=== PATIENT | female | born 1990 | race Caucasian/White ===

== ENCOUNTER 2016-10-25 14:48 | Emergency (ER) | payer MEDICAID ==
[2016-10-25 15:47] LABS: % BASOPHILS 0.5 % (0.0-2.0); % EOSINOPHILS 1.2 % (0.0-5.0); % LYMPHOCYTES 11.2 % (20.0-50.0); % MONOCYTES 5.6 % (2.0-10.0); % NEUTROPHILS 81.5 % (40.0-80.0); HEMOGLOBIN 11.9 gm/dL (11.7-15.5); MEAN CELL VOLUME 83.6 fl (81-100); MEAN CORPUSCULAR HEMOGLOBIN 27.7 pg (27.0-31.0); MEAN CORPUSCULAR HGB CONC 33.2 pg (28.0-36.0); MEAN PLATELET VOLUME 8.1 fl; NEUTROPHILE ABSOLUTE 9.5 Th/cmm (1.8-8.0); PLATELET COUNT 299 Th/cmm (150-400); RED CELL DISTRIBUTION WIDTH 13.7 % (11.5-20.0); WHITE BLOOD COUNT 11.7 Th/cmm (4.8-10.8)
--- NOTE | 2016-10-25 15:58 | ED Physician Chart ---
Chief Complaint/HPI - Patient Information Date Seen:: 10/25/16 Time Seen:: 15:53 Chief Complaint:: RIGHT LOWER QUADRANT PAIN History of Present Illness:: THIS IS A 26 YO FEMALE WITH THE SUDDEN ONSET OF RIGHT LOWER QUADRANT PAIN A WEEK AGO THAT WENT AWAY. SHE IS HERE TODAYS BECAUSE THE PAIN CAME BACK. SHE DENIES FEVER,VOMITING AND DIARRHEA. SHE DENIES AND PAINFUL URINATION. SHE STATES THAT SHE HAS BEEN BLEEDING FOR A MONTH AND HAS AN IUD. Allergies:: Allergies Allergy/AdvReac Type Severity Reaction Status Date / Time No Known Allergies Allergy Verified 10/25/16 15:46 Vitals:: Vital Signs - 8 hr 10/25/16 15:46 Temp 98.1 F HR 86 RR 16 BP 138/97 O2 Sat % 99 Historian:: Patient Review:: Nurse's Note Reviewed <Jamie Conti - Last Filed: 10/25/16 18:04> - Patient Information Allergies:: Allergies Allergy/AdvReac Type Severity Reaction Status Date / Time No Known Allergies Allergy Verified 10/25/16 15:46 Vitals:: Vital Signs - 8 hr 10/25/16 10/25/16 10/25/16 15:46 17:04 19:26 Temp 98.1 F 98.2 F 98.0 F HR 86 84 69 RR 16 16 18 BP 138/97 137/94 111/74 O2 Sat % 99 99 96 10/25/16 21:06 Temp 98.4 F HR 61 RR 16 BP 115/71 O2 Sat % 97 <Jonathan Llanes - Last Filed: 10/25/16 21:38> Review of Systems - Review of Systems General/Constitutional: No fever, No chills, No weight loss, No weakness, No diaphoresis, No edema, No loss of appetite Skin: No skin lesions, No rash, No bruising Head: No headache, No light-headedness Eyes: No loss of vision, No pain, No diplopia ENT: No earache, No nasal drainage, No sore throat, No tinnitus Neck: No neck pain, No swelling, No thyromegaly, No stiffness, No mass noted Cardio Vascular: No chest pain, No palpitations, No PND, No orthopnea, No edema Pulmonary: No SOB, No cough, No sputum, No wheezing GI: No nausea, No vomiting, No diarrhea, Pain, No melena, No hematochezia, No constipation, No hematemesis G/U: No dysuria, No frequency, No hematuria Musculoskeletal: No bone or joint pain, No back pain, No muscle pain Endocrine: No polyuria, No polydipsia Psychiatric: No prior psych history, No depression, No anxiety, No suicidal ideation Hematopoietic: No bruising, No lymphadenopathy Allergic/Immuno: No urticaria, No angioedema Neurological: No syncope, No focal symptoms, No weakness, No paresthesia, No headache, No seizure, No dizziness, No confusion, No vertigo <Jamie Conti - Last Filed: 10/25/16 18:04> Past Medical History - Past Medical History Obtainable: Yes Past Medical History: Thyroid disorder Family History: None Social History: Non Smoker, No Alcohol, No Drug Use Surgical History: <Jamie Conti Filed: 10/25/16 18:04> Family Medical History - Family Member Mother History Unknown: Yes <Jamie Conti Last Filed: 10/25/16 18:04> Physical Exam - Physical Examination General/Constitutional: Awake, Well-developed, well-nourished, Alert, No distress, GCS 15, Non-toxic appearing, Ambulatory Head: Atraumatic Eyes: Lids, conjuctiva normal, PERRL, EOMI Skin: Nl inspection, No rash, No skin lesions, No ecchymosis, Well hydrated, No lymphadenopathy ENMT: External ears, nose nl, Nasal exam nl, Lips, teeth, gums nl Neck: Nontender, Full ROM w/o pain, No JVD, No nuchal rigidity, No bruit, No mass, No stridor Respiratory: Nl effort/Exclusion, Clear to Auscultation, No Wheeze/Rhonchi/Rales Cardio Vascular: RRR, No murmur, gallop, rubs, NL S1 S2 GI: No organomegaly, No hernia, Normal BS's, Nondistended, No mass/bruits, No McBurney tenderness Other GI comments:: RIGHT LOWER QUADRANT TENDERNESS : No CVA tenderness Extremities: No tenderness or effusion, Full ROM, normal strength in all extremities, No edema, Normal digits & nails Neuro/Psych: Alert/oriented, DTR's symmetric, Normal sensory exam, Normal motor strength, Judgement/insight normal, Mood normal, Normal gait, No focal deficits Misc: normal gait, Normal back, No paraspinal tenderness <Jamie Conti - Last Filed: 10/25/16 18:04> Labs/Radiology/EKG Results - Lab Results Results: Laboratory Tests 10/25/16 15:15 WBC 11.7 H RBC 4.30 Hgb 11.9 Hct 36.0 MCV 83.6 MCH 27.7 MCHC Differential 33.2 RDW 13.7 Plt Count 299 MPV 8.1 Neutrophils % 81.5 H Lymphocytes % 11.2 L Monocytes % 5.6 Eosinophils % 1.2 Basophils % 0.5 <GallitoJamie - Last Filed: 10/25/16 18:04> - Lab Results Results: Laboratory Tests 10/25/16 10/25/16 10/25/16 15:15 15:15 15:15 WBC 11.7 H RBC 4.30 Hgb 11.9 Hct 36.0 MCV 83.6 MCH 27.7 MCHC Differential 33.2 RDW 13.7 Plt Count 299 MPV 8.1 Neutrophils % 81.5 H Lymphocytes % 11.2 L Monocytes % 5.6 Eosinophils % 1.2 Basophils % 0.5 PT 10.1 INR 0.97 PTT (Actin FS) 25.6 L Sodium 135 L Potassium 3.7 Chloride 106 Carbon Dioxide 21.4 Anion Gap 11.3 BUN 9 Creatinine 0.7 Est GFR ( Amer) > 60.0 Est GFR (Non-Af Amer) > 60.0 BUN/Creatinine Ratio 12.9 Glucose 99 Calcium 9.3 Total Bilirubin 0.4 AST 17 ALT 15 Alkaline Phosphatase 85 Troponin I Total Protein 7.1 Albumin 4.2 Globulin 2.9 Albumin/Globulin Ratio 1.5 TSH Beta HCG, Quant Serum , Qual Urine Source Urine Color Urine Clarity Urine pH Ur Specific [place] Urine Protein Urine Glucose (UA) Urine Ketones Urine Blood Urine Nitrate Urine Bilirubin Urine Urobilinogen Ur Leukocyte Esterase Urine RBC Urine WBC Ur Epithelial Cells Urine Bacteria Urine Test Urine Opiates Screen Urine Methadone Screen Ur Barbiturates Screen Ur Tricyclics Screen Ur Phencyclidine Scrn Amphetamines Screen U Methamphetamines Scrn U Benzodiazepines Scrn U Cocaine Metab Screen U Cannabinoids Screen RPR 10/25/16 10/25/16 10/25/16 15:15 15:15 15:15 WBC RBC Hgb Hct MCV MCH MCHC Differential RDW Plt Count MPV Neutrophils % Lymphocytes % Monocytes % Eosinophils % Basophils % PT INR PTT (Actin FS) Sodium Potassium Chloride Carbon Dioxide Anion Gap BUN Creatinine Est GFR ( Amer) Est GFR (Non-Af Amer) BUN/Creatinine Ratio Glucose Calcium Total Bilirubin AST ALT Alkaline Phosphatase Troponin I < 0.01 L Total Protein Albumin Globulin Albumin/Globulin Ratio TSH 1.49 Beta HCG, Quant Serum , Qual Urine Source Urine Color Urine Clarity Urine pH Ur Specific [place] Urine Protein Urine Glucose (UA) Urine Ketones Urine Blood Urine Nitrate Urine Bilirubin Urine Urobilinogen Ur Leukocyte Esterase Urine RBC Urine WBC Ur Epithelial Cells Urine Bacteria Urine Test Urine Opiates Screen Urine Methadone Screen Ur Barbiturates Screen Ur Tricyclics Screen Ur Phencyclidine Scrn Amphetamines Screen U Methamphetamines Scrn U Benzodiazepines Scrn U Cocaine Metab Screen U Cannabinoids Screen RPR NONREACTIVE 10/25/16 10/25/16 10/25/16 15:15 15:15 15:55 WBC RBC Hgb Hct MCV MCH MCHC Differential RDW Plt Count MPV Neutrophils % Lymphocytes % Monocytes % Eosinophils % Basophils % PT INR PTT (Actin FS) Sodium Potassium Chloride Carbon Dioxide Anion Gap BUN Creatinine Est GFR ( Amer) Est GFR (Non-Af Amer) BUN/Creatinine Ratio Glucose Calcium Total Bilirubin AST ALT Alkaline Phosphatase Troponin I Total Protein Albumin Globulin Albumin/Globulin Ratio TSH Beta HCG, Quant 173 Serum , Qual POSITIVE H Urine Source CLEAN C Urine Color YELLOW Urine Clarity CLEAR Urine pH 6.0 Ur Specific [place] 1.010 Urine Protein NEGATIVE Urine Glucose (UA) NEGATIVE Urine Ketones NEGATIVE Urine Blood MODERATE H Urine Nitrate NEGATIVE Urine Bilirubin NEGATIVE Urine Urobilinogen 0.2 Ur Leukocyte Esterase NEGATIVE Urine RBC 2-5 Urine WBC 0-2 Ur Epithelial Cells FEW Urine Bacteria OCCASIONAL Urine Test Urine Opiates Screen Urine Methadone Screen Ur Barbiturates Screen Ur Tricyclics Screen Ur Phencyclidine Scrn Amphetamines Screen U Methamphetamines Scrn U Benzodiazepines Scrn U Cocaine Metab Screen U Cannabinoids Screen RPR 10/25/16 10/25/16 15:55 15:55 WBC RBC Hgb Hct MCV MCH MCHC Differential RDW Plt Count MPV Neutrophils % Lymphocytes % Monocytes % Eosinophils % Basophils % PT INR PTT (Actin FS) Sodium Potassium Chloride Carbon Dioxide Anion Gap BUN Creatinine Est GFR ( Amer) Est GFR (Non-Af Amer) BUN/Creatinine Ratio Glucose Calcium Total Bilirubin AST ALT Alkaline Phosphatase Troponin I Total Protein Albumin Globulin Albumin/Globulin Ratio TSH Beta HCG, Quant Serum , Qual Urine Source Urine Color Urine Clarity Urine pH Ur Specific [place] Urine Protein Urine Glucose (UA) Urine Ketones Urine Blood Urine Nitrate Urine Bilirubin Urine Urobilinogen Ur Leukocyte Esterase Urine RBC Urine WBC Ur Epithelial Cells Urine Bacteria Urine Test POSITIVE Urine Opiates Screen NEGATIVE Urine Methadone Screen NEGATIVE Ur Barbiturates Screen NEGATIVE Ur Tricyclics Screen NEGATIVE Ur Phencyclidine Scrn NEGATIVE Amphetamines Screen NEGATIVE U Methamphetamines Scrn NEGATIVE U Benzodiazepines Scrn NEGATIVE U Cocaine Metab Screen NEGATIVE U Cannabinoids Screen NEGATIVE RPR <Jonathan Llanes - Last Filed: 10/25/16 21:38> ED Septic Shock - . Is Septic Shock (SBP<90, OR Lactate>4 mmol\L) present?: No - <6hrs of presentation: Vital Signs: Vital Signs - 8 hr 10/25/16 15:46 Temp 98.1 F HR 86 RR 16 BP 138/97 O2 Sat % 99 <Jamie Conti - Last Filed: 10/25/16 18:04> - . Is Septic Shock (SBP<90, OR Lactate>4 mmol\L) present?: No - <6hrs of presentation: Vital Signs: Vital Signs - 8 hr 10/25/16 10/25/16 10/25/16 15:46 17:04 19:26 Temp 98.1 F 98.2 F 98.0 F HR 86 84 69 RR 16 16 18 BP 138/97 137/94 111/74 O2 Sat % 99 99 96 10/25/16 21:06 Temp 98.4 F HR 61 RR 16 BP 115/71 O2 Sat % 97 <Jonathan Llanes - Last Filed: 10/25/16 21:38> Reassessment (Disposition) - Reassessment Reassessment:: Patient has what looks to be an ectopic in the right fallopian tube. Discussed with the [facility]. Patient to be transferred to [facility]. Will be ER to ER transfer and spoke to photoresist printer on-call. They will repeat the ultrasound once she arrives. Pain is controlled. Vital signs look stable for transfer. Dr. Diaz is the ER physician on duty now. - Diagnosis Diagnosis:: Acute abdominal pain due to ectopic in the right fallopian tube - Aftercare/Follow up Instructions Aftercare/Follow-Up Instructions:: Counseled pt regarding lab results/diagnosis & need follow up, Refer to Discharge Instructions - Patient Disposition Discharge/Transfer:: Acute Care (other hosp) Discussion with Medical Provider:: STACIE gaming transfer to [facility] ER Time:: 21:38 Condition at Disposition:: Stable <Jonathan Llanes - Last Filed: 10/25/16 21:38>
[2016-10-25 16:13] LABS: INR 0.97 (0.5-1.4); PROTHROMBIN TIME (TEST) 10.1 SECONDS (9.5-11.5)
[2016-10-25 16:36] LABS: ALB/GLOB RATIO 1.5 (1.0-1.8); ALKALINE PHOSPHATASE 85 U/L (34-104); ANION GAP 11.3 (7.0-16.0); BILIRUBIN,TOTAL 0.4 mg/dL (0.3-1.0); BUN - UREA NITROGEN 9 mg/dL (7-25); BUN/CREATININE RATIO 12.9; CALCIUM SERUM 9.3 mg/dL (8.6-10.3); CARBON DIOXIDE 21.4 mEq/L (21.0-31.0); CHLORIDE 106 mEq/L (98-107); CREATININE - SERUM 0.7 mg/dL (0.6-1.2); GLUCOSE 99 mg/dL (70-105); POTASSIUM SERUM 3.7 mEq/L (3.5-5.1); SGOT 17 U/L (13-39); SGPT/ALT 15 U/L (7-52); SODIUM SERUM 135 mEq/L (136-145)
[2016-10-25 16:49] LABS: URINE BACTERIA OCCASIONAL /hpf (NONE SEEN); URINE BILIRUBIN NEGATIVE (NEGATIVE); URINE BLOOD MODERATE (NEGATIVE); URINE COLOR YELLOW; URINE EPITHELIAL CELLS FEW /lpf (FEW); URINE GLUCOSE (UA) NEGATIVE (NEGATIVE); URINE KETONE NEGATIVE (NEGATIVE); URINE PROTEIN NEGATIVE (NEGATIVE); URINE UROBILINOGEN 0.2 E.U./dL (0.2 - 1.0); URINE WBC 0-2 /hpf (0-5)
[2016-10-25 16:51] LABS: AMPHETAMINE URINE NEGATIVE (NEGATIVE); BARBITURATES URINE NEGATIVE (NEGATIVE); METHADONE URINE NEGATIVE (NEGATIVE)
[2016-10-25] MEDS ORDERED: Sodium Chloride 0.45% 500 ML IV ONE (18:03)
--- NOTE | 2016-10-26 09:46 | Diagnostic Imaging Report ---
Ultrasound abdomen HISTORY: Right lower quadrant pain and bleeding COMPARISON: Pelvic ultrasound the same day Technique: Sonography of the abdomen was performed in multiple planes. FINDINGS: The liver demonstrates normal echogenicity with no evidence of focal lesions. The liver measures 16.2 cm. The gallbladder wall is borderline prominent. No discrete gallstones identified. The common bile duct measures 4 mm. Evaluation of the pancreas is limited due to bowel gas. The right kidney measures 9.7 cm. No evidence of focal lesions or hydronephrosis. The left kidney [id number] cm. There is fullness of the left renal collecting system without evidence of leeanna hydronephrosis. The spleen measures 11.3 cm. Images of the right lower quadrant were obtained. Appendix was not visualized. IMPRESSION: The appendix was not visualized. If there is continued clinical concern for acute appendicitis, CT examination is recommended for further assessment. Nonspecific fullness of the left renal collecting system without evidence of leeanna hydronephrosis. Borderline prominent gallbladder wall. No discrete gallstones identified.
--- NOTE | 2016-10-26 09:51 | Diagnostic Imaging Report ---
Ultrasound pelvis HISTORY: Vaginal bleeding on and off for one month. Patient has IUD for 6 years. Urine test is reported to be positive. Notes. COMPARISON: Ultrasound abdomen the same Technique: Longitudinal and transverse sonographic sector images of the pelvis were obtained transabdominally and transvaginally. FINDINGS: An IUD is visualized within the uterine body and fundal portion. The uterus measures 11.6 x 4.7 x 5.2 cm. There is suboptimal evaluation of the endometrial echo complex due to patient's IUD. Small amount of fluid is seen in the endocervical canal. No gestational sac visualized. The right ovary measures 3.0 x 2.2 cm. There is nonspecific prominence of right adnexal region. The left ovary measures 2.6 x 3.5 cm. Vascular flow to the ovaries is noted. No evidence of free fluid in the pelvis. IMPRESSION: IUD is visualized. Patient's urine test was reported to be positive. No intrauterine is identified. Please correlate patient's clinical findings including including follow-up repeat beta hCG levels. Mild prominence of the right adnexal region. Etiology uncertain. Hydrosalpinx may be considered but is less likely. When clinically feasible, if patient is not , CT examination may also be obtained for further assessment. Small amount of fluid within the endocervical canal. No evidence of free fluid in the pelvis. In the presence of a positive test, ectopic gestation should be excluded.
== END 2016-10-25 22:45 | disposition short-term general hospital (02) ==
LOC: ER 14:48
DX: O00.10 Tubal pregnancy without intrauterine pregnancy (principal); R10.31 Right lower quadrant pain; Z3A.00 Weeks of gestation of pregnancy not specified; E07.9 Disorder of thyroid, unspecified
CPT/HCPCS: 99285; 96361; 96374; 76700; 76856; 84484; 80307; 36415; 84702; 84443; 86592; 85025; 85610; 85730; 81001; 81025 ×2; 80053; 87040 ×2; J1885; J7040